=== PATIENT | female | born 1940 | race Caucasian/White ===

== ENCOUNTER 2020-01-18 11:42 | Outpatient (CLI) | payer MEDICARE ==
--- NOTE | 2020-01-18 12:13 | RAD ---
XR Lumbar Spine 2 Or 3 View HISTORY: Low back pain and right lower extremity radiculopathy FINDINGS: Multilevel degenerative changes are present. No compression fracture is noted. There is minimal anter olisthesis of L4 over L5 and L5 over S1. There is minimal retrolisthesis of L2 over L3 and L1 over L2 vertebral bodies. IMPRESSION: Lumbar spondylosis
== END 2020-01-18 11:43 | disposition home or self-care (01) ==
LOC: NAV RAD 11:42
PROVIDERS: ATTEND Family Medicine
DX: M47.26 Other spondylosis with radiculopathy, lumbar region (principal)
CPT/HCPCS: 72100

== ENCOUNTER 2023-12-29 15:18 | Outpatient (CLI) | payer OTHER | END 2023-12-29 15:19 | disposition home or self-care (01) | LOC: NAV RAD 15:18 | PROVIDERS: ATTEND Family Medicine | DX: M43.8X4 Other specified deforming dorsopathies, thoracic region (principal); M47.814 Spondylosis without myelopathy or radiculopathy, thoracic region | CPT/HCPCS: 72070 ==

== ENCOUNTER 2024-05-12 16:14 | Emergency (ER) | payer OTHER | END 2024-05-12 17:20 | disposition home or self-care (01) | LOC: NAV ERS 16:14 | DX: J11.1 Influenza due to unidentified influenza virus with other respiratory manifestations (principal); I10 Essential (primary) hypertension; E11.9 Type 2 diabetes mellitus without complications; E07.9 Disorder of thyroid, unspecified; Z79.4 Long term (current) use of insulin; Z79.899 Other long term (current) drug therapy | CPT/HCPCS: 71045 ==

== ENCOUNTER 2024-05-18 16:25 | Outpatient (CLI) | payer OTHER | END 2024-05-18 16:26 | disposition home or self-care (01) | LOC: NAV CT 16:25 | PROVIDERS: ATTEND Nurse Practitioner Family | DX: R42 Dizziness and giddiness (principal); I67.82 Cerebral ischemia | CPT/HCPCS: 70450 ==

== ENCOUNTER 2025-02-25 20:54 | Emergency (ER) | payer OTHER ==
[2025-02-25] MEDS ORDERED: Acetaminophen 500 MG TAB ONE (21:40)
== END 2025-02-25 23:05 | disposition home or self-care (01) ==
LOC: NAV ERS 20:54
DX: S09.90XA Unspecified injury of head, initial encounter (principal); M54.2 Cervicalgia; I10 Essential (primary) hypertension; E11.9 Type 2 diabetes mellitus without complications; W01.0XXA Fall on same level from slipping, tripping and stumbling without subsequent striking against object, initial encounter; Z79.4 Long term (current) use of insulin; Z79.899 Other long term (current) drug therapy
CPT/HCPCS: 70450; 72125

== ENCOUNTER 2025-03-05 17:20 | Outpatient (CLI) | payer OTHER | END 2025-03-05 17:21 | disposition home or self-care (01) | LOC: NAV RAD 17:20 | PROVIDERS: ATTEND Nurse Practitioner Family | DX: M79.605 Pain in left leg (principal) ==

== ENCOUNTER 2025-03-08 11:13 | Outpatient (CLI) | payer SELFPAY ==
[2025-03-08 14:34] LABS: Glucose, Urine (Dipstick) Negative (Negative); Leukocyte Moderate (Negative); Protein, Urine (Dipstick) Negative (Neg-Trace); Specific Gravity, Urine Less than 1.005 (1.005-1.030)
== END 2025-03-08 11:14 | disposition home or self-care (01) ==
LOC: NAV LAB 11:13
PROVIDERS: ATTEND Pathology Anatomic Pathology & Clinical Pathology
DX: Z00.00 Encounter for general adult medical examination without abnormal findings (principal)
CPT/HCPCS: 81003

== ENCOUNTER 2025-03-10 15:02 | Emergency (ER) | payer OTHER ==
[~2025-03-10 15:02] MED LIST: Iopamidol 370 76% 100 ML VIAL ONE
[2025-03-10 16:09] LABS: Glucose, Urine (Dipstick) Negative (Negative); Leukocyte Negative (Negative); Protein, Urine (Dipstick) Negative (Neg-Trace); Specific Gravity, Urine 1.015 (1.005-1.030)
[2025-03-10 16:16] LABS: Bacteria/HPF 1+ HPF (None Seen); CAUTI Indications for Culture Dysuria,urgency,freq; RBC/HPF 0-3 HPF (0-3); WBC/HPF 0-3 HPF (0-3)
[2025-03-10 16:17] LABS: Urine Culture Reflex No No
[2025-03-10 16:23] LABS: Hematocrit 38.4 % (36.0-47.0); Hemoglobin 13.4 g/dL (12.0-16.0); Mean Corpuscular Hemoglobin 29.9 pg (27.0-31.0); Mean Corpuscular Volume 85.6 fl (78.0-98.0); Platelet Count 441 10x3/uL (130-400); Red Blood Cell (RBC) Count 4.49 mill/uL (4.20-5.40); White Blood Cell (WBC) Count 9.3 10x3/uL (4.8-10.8)
[2025-03-10 16:25] LABS: ALT (SGPT) 22 U/L (Less than 34); AST (SGOT) 27 U/L (11-34); Albumin 3.9 g/dL (3.1-4.5); Alkaline Phosphatase 80 U/L (40-110); Anion Gap 15 mmol/L (10-20); BUN (Urea Nitrogen) 35 mg/dL (9.8-20.1); Bilirubin, Total 0.2 mg/dL (0.3-1.2); Calc. Creatinine Clearance 0 mL/min (70-130); Calcium 9.7 mg/dL (7.8-10.44); Carbon Dioxide 24 mmol/L (23-31); Chloride 104 mmol/L (98-107); Globulin 3.6 g/dL (2.4-3.5); Glucose 142 mg/dL (83-110); Potassium 4.4 mmol/L (3.5-5.1); Sodium 139 mmol/L (136-145)
== END 2025-03-10 19:36 | disposition home or self-care (01) ==
LOC: NAV ERS 15:02
DX: S00.83XA Contusion of other part of head, initial encounter (principal); R10.31 Right lower quadrant pain; N39.0 Urinary tract infection, site not specified; E11.9 Type 2 diabetes mellitus without complications; I10 Essential (primary) hypertension; Z79.899 Other long term (current) drug therapy; W20.8XXA Other cause of strike by thrown, projected or falling object, initial encounter; W19.XXXA Unspecified fall, initial encounter
CPT/HCPCS: 51701; 70450; 74177; 80053; 81001; 85025; 87086; Q9967